=== PATIENT | male | born 1965 | race American Indian/Alaskan Native ===

== ENCOUNTER 2020-11-17 09:30 | Outpatient (CLI) | payer OTHER ==
--- NOTE | 2020-11-17 11:25 | XRay Report ---
CHEST 2 VIEWS INDICATION / CLINICAL INFORMATION: COUGH. COMPARISON: None available. FINDINGS: SUPPORT DEVICES: None. HEART / MEDIASTINUM: No significant abnormality. LUNGS / PLEURA: No significant pulmonary or pleural abnormality. No pneumothorax. ADDITIONAL FINDINGS: No significant additional findings. IMPRESSION: 1. No acute findings. Signer Name: Estuardo Seals MD Signed: 11/17/2020 11:20 AM Workstation Name: [email or web address]
--- NOTE | 2020-11-17 11:32 | XRay Report ---
XR knee BILAT 1-2V INDICATION: BILATERAL KNEE PAIN. COMPARISON: None available. 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 There are no focal bone lesions. There does appear to be a loose body contained within a popliteal cyst in the right knee. Signer Name: Estuardo Seals MD Signed: 11/17/2020 11:27 AM Workstation Name: [email or web address]
--- NOTE | 2020-11-17 11:39 | XRay Report ---
XR spine lumbosacral 2-3V INDICATION / CLINICAL INFORMATION: BACK PAIN. COMPARISON: None available. FINDINGS: BONES/JOINT(S): No acute fracture or subluxation. There is moderate degenerative disc disease at L4-5 with disc height loss and reactive endplate osteophyte formation. There is mild diffuse spondylosis in the remainder of the lumbar spine. Overall alignment is normal. SOFT TISSUES: No significant abnormality. ADDITIONAL FINDINGS: None. Signer Name: Estuardo Seals MD Signed: 11/17/2020 11:35 AM Workstation Name: [email or web address]
== END 2020-11-17 09:31 | disposition home or self-care (01) ==
LOC: XRAY 09:30
PROVIDERS: ATTEND Internal Medicine
DX: M17.0 Bilateral primary osteoarthritis of knee (principal); M47.816 Spondylosis without myelopathy or radiculopathy, lumbar region; R05 Cough; J45.909 Unspecified asthma, uncomplicated; M19.011 Primary osteoarthritis, right shoulder
CPT/HCPCS: 71046; 72100